=== PATIENT | female | born 1990 | race Caucasian/White ===

== ENCOUNTER 2025-02-22 15:33 | Outpatient (AMB) | payer BC, SELFPAY ==
[2025-02-22 16:11] VITALS: BP 130/89; PULSE 73; RESP 16; TEMP 36.5; O2SAT 98; BMI 38.2
--- NOTE | 2025-02-22 16:11 | AMB.OBINITIA ---
Vital Signs 02/22/25 16:11 Height 1.7 m Height Method Stated Weight 110.733 kg Weight Measurement Method Standing Scale BMI 38.2 BP 130/89 H Blood Pressure Source Automatic Cuff Blood Pressure Location Right Upper Arm Position Sitting Respiration 16 Pulse 73 Pulse Source Monitor Temp 97.7 F Temp Source Oral Pulse Oximetry (%) 98 Oxygen Delivery Method Room Air Allergies/Home Meds Allergies & Medications Allergies No Known Allergies Allergy (Verified 02/22/25 16:12) Medication Reconciliation No Known Home Medications 02/22/25 [History Confirmed 02/22/25] Intake Visit Data Collection New Patient or Established: New Patient (never been to [facility]) Reason for Visit:: INITIAL CARE Seen by Clinical Staff ONLY (RN/MA): No Front Desk Coordinator Required: No Do You Feel Safe at Home: Yes Authorities Contacted: N/A PCP or OBGYN visit in last 3 months: No Hx Now: Yes Are you currently on any form of Control: No Last menstrual period: 01/03/25 Pain Present Currently: No Pain Scale Used: Brown-Gardner/Numerical Pain scale:: 0 Smoking Status Smoking Status: Never smoker Questionnaires Covid-19 Vaccine Questionnaire Has patient been vacinated for Covid-19 Have you been vacinated for Covid-19: Yes PHQ-9 PHQ-2 Over the last 2 weeks, how often have you been bothered by any of the following problems? 1. Little interest or pleasure in doing things: not at all 2. Feeling down, depressed, or hopeless: not at all Total score: 0 PHQ-9 3. Trouble falling or staying asleep, or sleeping too much: Not at all 4. Feeling tired or having little energy: Not at all 5. Poor appetite or overeating: Not at all 6. Feeling bad about yourself - or that you are a failure or have let yourself or your family down: Not at all 7. Trouble concentrating on things, such as reading the newspaper or watching television: Not at all 8. Moving or speaking so slowly that other people could have noticed? - Or the opposite - being so fidgety or restless that you have been moving around a lot more than usual: not at all 9. Thoughts that you would be better off or of hurting yourself in some way: Not at all Total score: 0 Source: Developed by Drs. Bryan Alfredo, Yady Stauffer, Chester Villalba and colleagues, with an educational rodriguez from [employer]. Depression screen completed yes Social History Living Situation History Marital Status: Lives With: Family Housing: House Housing Other:: Has a 4 y/o daughter at home who has cystic fibrosis and is doing very well Tobacco History Smoking Status: Never smoker Second Hand Smoke Exposure: No Alcohol History Alcohol Intake: Never Domestic Abuse History Do You Feel Safe at Home: Yes History of Present Illness HPI Narrative The patient is a 34-year-old -1-0-1 past obstetrical history significant for vaginal delivery x 1 in about 2020 at 35 weeks. She was my patient in [place]. Her daughter weighed 4 pounds 7 ounces at . There were problems with baby passing meconium. They eventually diagnosed the baby with cystic fibrosis. She states that she is a carrier for the common cystic fibrosis gene and her is a carrier for one of the least common ones. They were told if they wanted to avoid having another baby with cystic fibrosis that they would have to undergo in vitro fertilization. They declined declined in vitro fertilization. They are aware of the risk of another child with cystic fibrosis of approximately 25% and they desire to keep this . They are okay with being co-managed with maternal- medicine in [place]. They do desire NIPT testing. The father the baby is present at bedside. 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 The patient states her daughter is doing quite well. She is on medications for her cystic fibrosis and this is controlling the disease quite well. OB Ultrasound Indication Indication: Size, dates, viability OB Ultrasound Ultrasound technique: transvaginal Gestational sac assessment: Presence, location, size, shape: There is a live intrauterine with a crown-rump length of 1.84 cm corresponding to 8 weeks and 2 days. 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 Hypertensive. OB Initial Visit Menstrual History Menstrual reliability: definite Flow: normal Menstrual regularity: regular Monthly: Yes Age at menarche: 10 On control pills at conception: No Associated symptoms (LMP): Reports amenorrhea, fatigue and breast tenderness OB History : 2 Para: 1 # of Living Children: 1 Delivery History 1st : Child's name: KETTY date: 04/11/21 sex: female Gestational age at delivery (weeks): 34 Delivery type: vaginal weight (lbs): 2012.816 g History of depression before or after : No Additional comments: Delivery between 34 and 35 weeks. Went into labor. Baby with cystic fibrosis. Infection History & Risk Evaluation History of STDs: none HIV risk evaluation: low risk Hepatitis B risk evaluation: low risk Patient or partner has history of Genital Herpes: No Varicella/chicken pox status: immunized Genetic Screening & History Genetic Screening/Teratology Counseling - Includes patient, baby's father, or anyone in either family with: 1. Patient's age 35 years or older as of estimated date of delivery: Yes 2. Thalassemia (Mongolian, Japanese, Mediterranean, or Background); MCV less than 80: No 3. Neural Tube Defect (Meningomyelocele, Spina Bifida, or Anencephaly): No 4. Congenital Heart Defect: No 5. Down Syndrome: No 6. Fercho-Sachs (Ashkenazi Adventist, Cajun, Vietnamese [place]): No 7. Tatyana Disease (Ashkenazi Adventist): No 8. Familial Dysautonomia (Ashkenazi Adventist): No 9. Sickle Cell Disease or Trait (): No 10. Hemophilia or other blood disorders: No 11. Muscular Dystrophy: No 12. Cystic Fibrosis: Yes (The patient and her are carriers for cystic fibrosis. ) 13. Kenefic's Chorea: No 14. Mental Retardation/Autism: No 15. Other inherited genetic or chromosomal disorder: No 16. Maternal Metabolic Disorder (EG,TYPE 1 Diabetes, PKU): No 17. Patient or baby's father had a child with defects not listed above: No 18. Recurrent loss or a stillbirth: No 19. Medications (including supplements, vitamins, herbs or otc drugs)/illicit/recreational drugs/alcohol since last menstrual period: No 20. Any other: No Comments/Counseling: Patient and her have been extensively counseled about cystic fibrosis and the fact they already have a daughter with cystic fibrosis and desire to proceed with . Infection History 1. Live with someone with TB or exposed to TB: No 2. Rash or viral illness since last menstrual period: No 3. Hepatitis B,C: No Other (see comments) Source: [employer] [place] [employer] Review of Systems Review of Systems Narrative Review of Systems: No bleeding or cramping. Tired. Breast tenderness. Constitutional Constitutional: Reports fatigue Genitourinary Genitourinary: Reports amenorrhea Endocrine Endocrine: Reports fatigue Exam General General Appearance: alert, in no apparent distress, comfortable, cooperative and healthy appearing Neck Neck exam: Present normal inspection, full ROM and trachea midline Chest Chest inspection: Present normal inspection and symmetric chest wall rise Resp Respiratory exam: Present normal lung sounds bilaterally Card Cardiovascular exam: Present regular rate, normal rhythm and normal heart sounds Abdominal Abdominal exam: Present soft and normal bowel sounds Psych Psychiatric exam: Present normal affect and normal mood Skin Skin exam: Present warm, dry, intact and normal color Office Procedures OB Clinic LOC & Office Proc's Nursing/Assessment Patient Status: Initial/New Patient OB Clinic Nursing Assessment: Medication Reconciliation, Update PMH in EMR and Vital Signs OB Clinic Coordination of Care: Complex Care and Chronic Disease 1-5, Consent,records obtained, informed consent, Education Simp Pt/Fam, Lab and Imaging orders, Results/Orders obtained and Staff clarify orders Special Needs: Heart tones Miscellaneous Interventions: Pelvic/Pap Smear Set up New Patient Charge New Patient Point Assignment: [id number] New Patient 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 Patient desires NIPT. Will call manage with maternal- medicine for history of cystic fibrosis. (2) Advanced maternal age (AMA) in : Status: Acute Assessment and Plan: Desires NIPT. For level 2 ultrasound with [facility]. (3) Cystic fibrosis carrier with affected child in prior , currently in first trimester: Status: Acute Assessment and Plan: Patient does not desire any special screening this will follow with maternal- medicine. Additional Plan Follow Up: 4 Weeks
== END 2025-02-22 17:10 | disposition home or self-care (01) ==
PROVIDERS: Supervising Provider Obstetrics & Gynecology; Visit Provider Obstetrics & Gynecology
DX: O09.521 Supervision of elderly multigravida, first trimester (principal); O09.291 Supervision of pregnancy with other poor reproductive or obstetric history, first trimester; Z14.1 Cystic fibrosis carrier; O09.891 Supervision of other high risk pregnancies, first trimester; O10.911 Unspecified pre-existing hypertension complicating pregnancy, first trimester; Z87.59 Personal history of other complications of pregnancy, childbirth and the puerperium; Z3A.08 8 weeks gestation of pregnancy
CPT/HCPCS: 99204; Q0091; G0463

== ENCOUNTER 2025-03-23 08:57 | Outpatient (AMB) | payer BC, SELFPAY ==
[2025-03-23 09:07] VITALS: BP 121/81; PULSE 75; RESP 17; TEMP 36.4; O2SAT 97; BMI 37.7
--- NOTE | 2025-03-23 09:07 | OBCLNT_ITS ---
Vital Signs 03/23/25 09:07 Height 1.7 m Height Method Stated Weight 109.089 kg Weight Measurement Method Standing Scale BMI 37.7 BP 121/81 Blood Pressure Source Automatic Cuff Blood Pressure Location Right Upper Arm Position Sitting Respiration 17 Pulse 75 Pulse Source Monitor Temp 97.6 F Temp Source Temporal Artery Scan Pulse Oximetry (%) 97 Oxygen Delivery Method Room Air Allergies/Home Meds Allergies & Medications Allergies No Known Allergies Allergy (Verified 03/23/25 09:08) Medication Reconciliation No Known Home Medications 02/22/25 [History Confirmed 03/23/25] Intake Visit Data Collection New Patient or Established: Established Patient (seen at [facility] within 3 years) Reason for Visit:: OBC Seen by Clinical Staff ONLY (RN/MA): No Emergency Veterinarian Required: No Do You Feel Safe at Home: Yes Authorities Contacted: N/A PCP or OBGYN visit in last 3 months: Yes Date of Last PCP or OBGYN visit: 02/22/25 Hx Now: Yes Are you currently on any form of Control: No Pain Present Currently: No Pain Scale Used: Brown-Gardner/Numerical Pain scale:: 0 Smoking Status Smoking Status: Never smoker Questionnaires Covid-19 Vaccine Questionnaire Has patient been vacinated for Covid-19 Have you been vacinated for Covid-19: No PHQ-9 PHQ-2 Over the last 2 weeks, how often have you been bothered by any of the following problems? 1. Little interest or pleasure in doing things: not at all 2. Feeling down, depressed, or hopeless: not at all Total score: 0 PHQ-9 3. Trouble falling or staying asleep, or sleeping too much: Not at all 4. Feeling tired or having little energy: Not at all 5. Poor appetite or overeating: Not at all 6. Feeling bad about yourself - or that you are a failure or have let yourself or your family down: Not at all 7. Trouble concentrating on things, such as reading the newspaper or watching television: Not at all 8. Moving or speaking so slowly that other people could have noticed? - Or the opposite - being so fidgety or restless that you have been moving around a lot more than usual: not at all 9. Thoughts that you would be better off or of hurting yourself in some way: Not at all Total score: 0 If you checked off any problems, how difficult have these problems made it for you to do your work, take care of things at home, or get along with other people?: not difficult at all Source: Developed by Drs. Bryan Alfredo, Yady Stauffer, Chester Villalba and colleagues, with an educational rodriguez from [employer] Depression screen completed yes Social History Living Situation History Marital Status: Lives With: Family Housing: House Housing Other:: Has a 4 y/o daughter at home who has cystic fibrosis and is doing very well Tobacco History Smoking Status: Never smoker Second Hand Smoke Exposure: No Alcohol History Alcohol Intake: Never Domestic Abuse History Do You Feel Safe at Home: Yes WARP DOFFER: Past Medical History Past Medical History: Yes Hx Hypertension History of Present Illness HPI Narrative Patient is a 34-year-old -0-0-1 presents for care. Care OB Visit Log OB Flowsheet Initial Weight: Not Recorded Date -?-?-?-?-?-?-?-?-?-?-?-?- EGA Weight BP Alb Glu CTX Pres Fundal ht FHR Mov Dilation Station Effacement Hx Notes Visit Note 03/23/25 -?-?-?-?-?-?-?-?-?-?-?-?- 12w 4d 109.089 kg 121/81 13 147 Good energy. No vaginal bleeding. No loss of fluids. Ultrasound today live IUP measuring 12 weeks 5 days crown-rump length is 6.29 cm SHANTANU Calculator Estimated Delivery Date Method Current WG Current Estimate 10/01/25 LMP (Certain) 12w 4d Other Estimates 10/02/25 Ultrasound #1 12w 3d Expected Delivery Route/Plan -0-0-1 status post vaginal delivery in the past Specific Issue/Plans Patient is a carrier for cystic fibrosis. Her is a carrier for cystic fibrosis. Their daughter at home is 4 years old and has cystic fibrosis. Patient is aware of a 25% chance of another child with cystic fibrosis. She would like to be followed at [facility] but declines amniocentesis or termination of if the baby has cystic fibrosis. Notes Visit Date: 03/23/25 Last Updated by: Apolonia Duarte (OB Clinic)MD Patient will get NIPT and labs done at [facility] now. She would like a referral to [facility] for a maternal- medicine consult and level 2 ultrasound. Office Procedures OB Clinic LOC & Office Proc's Nursing/Assessment Patient Status: Established Patient OB Clinic Nursing Assessment: Medication Reconciliation, Update PMH in EMR and Vital Signs OB Clinic Coordination of Care: Complex Care and Chronic Disease 1-5, Consent,records obtained, informed consent, Education Simp Pt/Fam and Staff clarify orders Special Needs: Heart tones Established Patient Charge Established Patient Point Assignment: 115 Established Patient Point Charge: EP Level 3 (80-115) Assessment & Plan Diagnosis / Problem List (1) Cystic fibrosis carrier with affected child in prior , currently in first trimester: Status: Acute Assessment and Plan: Desires level 2 ultrasound and MFM consult at [facility]. (2) Advanced maternal age (AMA) in : Status: Acute Assessment and Plan: Desires NIPT and level 2 ultrasound (3) : Status: Acute Qualifiers: Weeks of gestation: 12 weeks Qualified Code(s): Z3A.12 - 12 weeks gestation of
== END 2025-03-23 09:57 | disposition home or self-care (01) ==
LOC: HODSOBC 08:57
PROVIDERS: Supervising Provider Obstetrics & Gynecology; Visit Provider Obstetrics & Gynecology
DX: O09.521 Supervision of elderly multigravida, first trimester (principal); Z3A.12 12 weeks gestation of pregnancy; O09.891 Supervision of other high risk pregnancies, first trimester; Z14.1 Cystic fibrosis carrier; Z84.81 Family history of carrier of genetic disease
CPT/HCPCS: 99213; G0463

== ENCOUNTER 2025-04-28 09:02 | Outpatient (AMB) | payer BC, SELFPAY ==
[2025-04-28 09:24] VITALS: BP 125/80; PULSE 86; RESP 16; TEMP 36.8; O2SAT 98; BMI 29.5
--- NOTE | 2025-04-28 09:24 | OBCLNT_ITS ---
Vital Signs 04/28/25 09:24 Height 1.7 m Height Method Stated Weight 85.389 kg Weight Measurement Method Standing Scale BMI 29.5 BP 125/80 Blood Pressure Source Automatic Cuff Blood Pressure Location Left Upper Arm Position Sitting Respiration 16 Pulse 86 Pulse Source Monitor Temp 98.2 F Temp Source Oral Pulse Oximetry (%) 98 Oxygen Delivery Method Room Air Allergies/Home Meds Allergies & Medications Allergies No Known Allergies Allergy (Verified 04/28/25 09:26) Medication Reconciliation No Known Home Medications 02/22/25 [History Confirmed 04/28/25] Intake Visit Data Collection New Patient or Established: Established Patient (seen at [facility] within 3 years) Reason for Visit:: CARE Seen by Clinical Staff ONLY (RN/MA): No Ux Research Associate Required: No Do You Feel Safe at Home: Yes Authorities Contacted: N/A PCP or OBGYN visit in last 3 months: Yes Hx Now: Yes Are you currently on any form of Control: No Pain Present Currently: No Pain Scale Used: Brown-Gardner/Numerical Pain scale:: 0 Smoking Status Smoking Status: Never smoker Questionnaires Covid-19 Vaccine Questionnaire Has patient been vacinated for Covid-19 Have you been vacinated for Covid-19: Yes PHQ-9 PHQ-2 Over the last 2 weeks, how often have you been bothered by any of the following problems? 1. Little interest or pleasure in doing things: not at all 2. Feeling down, depressed, or hopeless: not at all Total score: 0 PHQ-9 3. Trouble falling or staying asleep, or sleeping too much: Not at all 4. Feeling tired or having little energy: Not at all 5. Poor appetite or overeating: Not at all 6. Feeling bad about yourself - or that you are a failure or have let yourself or your family down: Not at all 7. Trouble concentrating on things, such as reading the newspaper or watching television: Not at all 8. Moving or speaking so slowly that other people could have noticed? - Or the opposite - being so fidgety or restless that you have been moving around a lot more than usual: not at all 9. Thoughts that you would be better off or of hurting yourself in some way: Not at all Total score: 0 Source: Developed by Yady LaiW. Eh, Chester Villalba and colleagues, with an educational rodriguez from [employer]. 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 No vaginal bleeding. No loss of fluids. Ultrasound today live IUP measuring 12 weeks 5 days crown-rump length is 6.29 cm 04/28/25 -?-?-?-?-?-?-?-?-?-?-?-?- 17w 5d 85.389 kg 125/80 18 154 active + Flutter, N o VB or UCs No NIPT ordered. But desired SHANTANU Calculator Estimated Delivery Date Method Current WG Current Estimate 10/01/25 LMP (Certain) 17w 5d Other Estimates 10/02/25 Ultrasound #1 17w 4d Expected Delivery Route/Plan -0-0-1 status post vaginal delivery in the past Specific Issue/Plans Patient is a carrier for cystic fibrosis. Her is a carrier for cystic fibrosis. Their daughter at home is 4 years old and has cystic fibrosis. Patient is aware of a 25% chance of another child with cystic fibrosis. She would like to be followed at [facility] but declines amniocentesis or termination of if the baby has cystic fibrosis. Notes Visit Date: 04/28/25 Last Updated by: Apolonia Duarte (OB Clinic), PNC Labs on the chart: A+/Ab screen-/RNI/RPR NR/HepBSag-/HIV-/Hep C-/ GC-/Chlam-/SM-/CF carrier+ Has Level II US with [facility] Visit Date: 03/23/25 Last Updated by: Apolonia Duarte (OB Clinic)MD Patient will get NIPT and labs done at [facility] now. She would like a referral to [facility] for a maternal- medicine consult and level 2 ultrasound. Office Procedures OB Clinic LOC & Office Proc's Nursing/Assessment Patient Status: Established Patient OB Clinic Nursing Assessment: Medication Reconciliation, Update PMH in EMR and Vital Signs OB Clinic Coordination of Care: AMA, Complex Care and Chronic Disease 1-5, Consent,records obtained, informed consent, Education Simp Pt/Fam, 1 Ins Authorization, Lab and Imaging orders, Results/Orders obtained and Staff clarify orders Special Needs: Heart tones Established Patient Charge Established Patient Point Assignment: 170 Established Patient Point Charge: EP Level 5 (160-above) Assessment & Plan Diagnosis / Problem List (1) Cystic fibrosis carrier with affected child in prior , currently in first trimester: Status: Acute (2) Advanced maternal age (AMA) in : Status: Acute (3) : Status: Acute Qualifiers: Weeks of gestation: 17 weeks Qualified Code(s): Z3A.17 - 17 weeks gestation of
== END 2025-04-28 09:53 | disposition home or self-care (01) ==
LOC: HODSOBC 09:02
PROVIDERS: Supervising Provider Obstetrics & Gynecology; Visit Provider Obstetrics & Gynecology
DX: O09.522 Supervision of elderly multigravida, second trimester (principal); Z3A.17 17 weeks gestation of pregnancy; O09.892 Supervision of other high risk pregnancies, second trimester; Z14.1 Cystic fibrosis carrier; O10.912 Unspecified pre-existing hypertension complicating pregnancy, second trimester
CPT/HCPCS: 99215; G0463

== ENCOUNTER 2025-05-31 09:04 | Outpatient (AMB) | payer BC, SELFPAY ==
[2025-05-31 09:25] VITALS: BP 118/79; PULSE 71; RESP 16; TEMP 36.5; O2SAT 96; BMI 37.5
--- NOTE | 2025-05-31 09:25 | AMB.OBVISIT ---
Vital Signs 05/31/25 09:25 Height 1.7 m Height Method Stated Weight 108.579 kg Weight Measurement Method Standing Scale BMI 37.5 BP 118/79 Blood Pressure Source Automatic Cuff Blood Pressure Location Left Upper Arm Position Sitting Respiration 16 Pulse 71 Pulse Source Monitor Temp 97.7 F Temp Source Oral Pulse Oximetry (%) 96 Oxygen Delivery Method Room Air Allergies/Home Meds Allergies & Medications Allergies No Known Allergies Allergy (Verified 05/31/25 09:26) Medication Reconciliation No Known Home Medications 02/22/25 [History Confirmed 05/31/25] Intake Visit Data Collection New Patient or Established: Established Patient (seen at [facility] within 3 years) Reason for Visit:: CARE Seen by Clinical Staff ONLY (RN/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 1. Little interest or pleasure in doing things: not at all 2. Feeling down, depressed, or hopeless: not at all Total score: 0 PHQ-9 3. Trouble falling or staying asleep, or sleeping too much: Not at all 4. Feeling tired or having little energy: Not at all 5. Poor appetite or overeating: Not at all 6. Feeling bad about yourself - or that you are a failure or have let yourself or your family down: Not at all 7. Trouble concentrating on things, such as reading the newspaper or watching television: Not at all 8. Moving or speaking so slowly that other people could have noticed? - Or the opposite - being so fidgety or restless that you have been moving around a lot more than usual: not at all 9. Thoughts that you would be better off or of hurting yourself in some way: Not at all Total score: 0 Source: Developed by Drs. Bryan Alfredo, Yady Stauffer, Chester Villalba and colleagues, with an educational rodriguez from [employer]. 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 No vaginal bleeding. No loss of fluids. Ultrasound today live IUP measuring 12 weeks 5 days crown-rump length is 6.29 cm 04/28/25 <del>?</del> 17w 5d 85.389 kg 125/80 18 154 active + Flutter, No VB or UCs No NIPT ordered. 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 Her is a carrier for cystic fibrosis. Their daughter at home is 4 years old and has cystic fibrosis. Patient is aware of a 25% chance of another child with cystic fibrosis. She would like to be followed at [facility] but declines amniocentesis or termination of if the baby has cystic fibrosis. Notes Visit Date: 05/31/25 Last Updated by: Apolonia Duarte (OB Clinic)MD Had level 2 ultrasound at [facility] and normal. EDC 09/30/2025. Had a test called the Mi[employer] test which checks for genetic cystic fibrosis and the baby and it is negative. She states it would be less than 1% chance this baby has cystic fibrosis. [facility] recommended she double her dose of baby aspirin daily. They will follow-up for her cervical length and for growth. She will follow-up in 4 weeks. Visit Date: 04/28/25 Last Updated by: Apolonia Duarte (OB Clinic)MD PNC Labs on the chart: A+/Ab screen-/RNI/RPR NR/HepBSag-/HIV-/Hep C-/ GC-/Chlam-/SM-/CF carrier+ Has Level II US with [facility] Visit Date: 03/23/25 Last Updated by: Apolonia Duarte (OB Clinic)MD Patient will get NIPT and labs done at [facility] now. She would like a referral to [facility] for a maternal- medicine consult and level 2 ultrasound. Office Procedures OB Clinic LOC & Office Proc's Nursing/Assessment Patient Status: Established Patient OB Clinic Nursing Assessment: Medication Reconciliation, Update PMH in EMR and Vital Signs OB Clinic Coordination of Care: Complex Care and Chronic Disease 1-5, Consent,records obtained, informed consent, Education Simp Pt/Fam, Lab and Imaging orders, Results/Orders obtained and Staff clarify orders Special Needs: Heart tones Established Patient Charge Established Patient Point Assignment: 135 Established Patient Point Charge: EP Level 4 (120-155) Assessment & Plan Diagnosis / Problem List (1) Cystic fibrosis carrier with affected child in prior , currently in first trimester: Status: Acute Plan: This baby is negative for cystic fibrosis based on MiNOWireless genetic testing. (2) Advanced maternal age (AMA) in : Status: Acute Plan: Normal level 2 ultrasound normal NIPT on baby aspirin daily (3) : Status: Acute Qualifiers: Weeks of gestation: 22 weeks Qualified Code(s): Z3A.22 - 22 weeks gestation of
== END 2025-05-31 09:46 | disposition home or self-care (01) ==
LOC: HODSOBC 09:04
PROVIDERS: Supervising Provider Obstetrics & Gynecology; Visit Provider Obstetrics & Gynecology
DX: O09.522 Supervision of elderly multigravida, second trimester (principal); O09.892 Supervision of other high risk pregnancies, second trimester; Z14.1 Cystic fibrosis carrier; Z3A.22 22 weeks gestation of pregnancy; Z84.81 Family history of carrier of genetic disease
CPT/HCPCS: 99214; G0463

== ENCOUNTER 2025-06-30 09:29 | Outpatient (AMB) | payer BC, SELFPAY ==
[2025-06-30 09:47] VITALS: BP 135/85; PULSE 70; RESP 17; TEMP 36.4; O2SAT 98; BMI 38.0
--- NOTE | 2025-06-30 09:47 | AMB.OBVISIT ---
Vital Signs 06/30/25 09:47 Height 1.7 m Height Method Stated Weight 109.996 kg Weight Measurement Method Standing Scale BMI 38.0 BP 135/85 H Blood Pressure Source Automatic Cuff Blood Pressure Location Left Upper Arm Position Sitting Respiration 17 Pulse 70 Pulse Source Monitor Temp 97.5 F Temp Source Temporal Artery Scan Pulse Oximetry (%) 98 Allergies/Home Meds Allergies & Medications Allergies No Known Allergies Allergy (Verified 06/30/25 09:50) Medication Reconciliation aspirin 81 mg tablet 81 mg PO BID 06/30/25 [History Confirmed 06/30/25] desvenlafaxine 100 mg tablet,extended release 24 hr 100 mg PO QDAY 06/30/25 [History Confirmed 06/30/25] vits no.126-ferrous fum 28 mg iron-folic acid 800 mcg tablet (Classic ) tab PO 06/30/25 [History Confirmed 06/30/25] Intake Visit Data Collection New Patient or Established: Established Patient (seen at [facility] within 3 years) Reason for Visit:: OBC Seen by Clinical Staff ONLY (RN/MA): No Research Chef Required: No Do You Feel Safe at Home: Yes Authorities Contacted: N/A PCP or OBGYN visit in last 3 months: Yes Hx Now: Yes Are you currently on any form of Control: No Pain Present Currently: No Pain Scale Used: Brown-Gardner/Numerical Pain scale:: 0 Smoking Status Smoking Status: Never smoker Questionnaires Covid-19 Vaccine Questionnaire Has patient been vacinated for Covid-19 Have you been vacinated for Covid-19: Yes PHQ-9 PHQ-2 Over the last 2 weeks, how often have you been bothered by any of the following problems? 1. Little interest or pleasure in doing things: not at all 2. Feeling down, depressed, or hopeless: not at all Total score: 0 PHQ-9 3. Trouble falling or staying asleep, or sleeping too much: Not at all 4. Feeling tired or having little energy: Not at all 5. Poor appetite or overeating: Not at all 6. Feeling bad about yourself - or that you are a failure or have let yourself or your family down: Not at all 7. Trouble concentrating on things, such as reading the newspaper or watching television: Not at all 8. Moving or speaking so slowly that other people could have noticed? - Or the opposite - being so fidgety or restless that you have been moving around a lot more than usual: not at all 9. Thoughts that you would be better off or of hurting yourself in some way: Not at all Total score: 0 If you checked off any problems, how difficult have these problems made it for you to do your work, take care of things at home, or get along with other people?: not difficult at all Source: Developed by Drs. Bryan Alfredo, Yady Stauffer, Chester Villalba and colleagues, with an educational rodriguez from [employer]. 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 No vaginal bleeding. No loss of fluids. Ultrasound today live IUP measuring 12 weeks 5 days crown-rump length is 6.29 cm 04/28/25 <del>?</del> 17w 5d 85.389 kg 125/80 18 154 active + Flutter, No VB or UCs No NIPT ordered. 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 Her is a carrier for cystic fibrosis. Their daughter at home is 4 years old and has cystic fibrosis. Patient is aware of a 25% chance of another child with cystic fibrosis. She would like to be followed at [facility] but declines amniocentesis or termination of if the baby has cystic fibrosis. Notes Visit Date: 05/31/25 Last Updated by: Apolonia Duarte (OB Clinic)MD Had level 2 ultrasound at [facility] and normal. EDC 09/30/2025. Had a test called the [employer] test which checks for genetic cystic fibrosis and the baby and it is negative. She states it would be less than 1% chance this baby has cystic fibrosis. [facility] recommended she double her dose of baby aspirin daily. They will follow-up for her cervical length and for growth. She will follow-up in 4 weeks. Visit Date: 04/28/25 Last Updated by: Apolonia Duarte (OB Clinic)MD [facility] Labs on the chart: A+/Ab screen-/RNI/RPR NR/HepBSag-/HIV-/Hep C-/ GC-/Chlam-/SM-/CF carrier+ Has Level II US with [facility] Visit Date: 03/23/25 Last Updated by: Apolonia Duarte (OB Clinic)MD Patient will get NIPT and labs done at [facility] now. She would like a referral to [facility] for a maternal- medicine consult and level 2 ultrasound. Office Procedures OBC Clinic LOC & Office Proc's Nursing/Assessment Patient Status: Established Patient OB Clinic Nursing Assessment: Medication Reconciliation, Update PMH in EMR and Vital Signs OB Clinic Coordination of Care: Complex Care and Chronic Disease 1-5, Education Complex Pt/Fam, Consent,records obtained, informed consent, Lab and Imaging orders, Results/Orders obtained and Staff clarify orders Special Needs: Heart tones Established Patient Charge Established Patient Point Assignment: 140 Established Patient Point Charge: EP Level 4 (120-155)
== END 2025-06-30 10:17 | disposition home or self-care (01) ==
PROVIDERS: Supervising Provider Advanced Practice Midwife; Visit Provider Obstetrics & Gynecology
DX: O09.522 Supervision of elderly multigravida, second trimester (principal); O09.892 Supervision of other high risk pregnancies, second trimester; Z14.1 Cystic fibrosis carrier; Z3A.26 26 weeks gestation of pregnancy
CPT/HCPCS: 99214; G0463

== ENCOUNTER 2025-08-13 14:54 | Outpatient (AMB) | payer BC, SELFPAY ==
--- NOTE | 2025-08-13 15:05 | OBCLNT_ITS ---
Vital Signs 08/13/25 15:09 Height 1.7 m Height Method Stated Weight 112.037 kg Weight Measurement Method Standing Scale BMI 38.7 BP 142/88 H Blood Pressure Source Automatic Cuff Blood Pressure Location Left Upper Arm Position Sitting Respiration 18 Pulse 77 Pulse Source Monitor Temp 97.2 F Temp Source Oral Pulse Oximetry (%) 98 Oxygen Delivery Method Room Air Allergies/Home Meds Allergies & Medications Allergies No Known Allergies Allergy (Verified 08/13/25 15:11) Medication Reconciliation aspirin 81 mg tablet 81 mg PO BID 06/30/25 [History Confirmed 08/13/25] desvenlafaxine 100 mg tablet,extended release 24 hr 100 mg PO QDAY 06/30/25 [History Confirmed 08/13/25] vits no.126-ferrous fum 28 mg iron-folic acid 800 mcg tablet (Classic ) tab PO 06/30/25 [History Confirmed 08/13/25] Immunizations Immunizations Flu Vaccine in the Last 12 Months: No Flu Vaccine Exclusion Criteria: No Exclusion Criteria Care OB Visit Log OB Flowsheet Initial Weight: Not Recorded Date -?-?-?-?-?-?-?-?-?-?-?-?- EGA Weight BP Alb Glu CTX Pres Fundal ht FHR Mov Dilation Station Effacement Hx Notes Visit Note 03/23/25 -?-?-?-?-?-?-?-?-?-?-?-?- 12w 4d 109.089 kg 121/81 13 147 Good energy. No vaginal bleeding. No loss of fluids. Ultrasound today live IUP measuring 12 weeks 5 days crown-rump length is 6.29 cm 04/28/25 -?-?-?-?-?-?-?-?-?-?-?-?- 17w 5d 85.389 kg 125/80 18 154 active + Flutter, N o VB or UCs No NIPT ordered. But desired 05/31/25 -?-?-?-?-?-?-?-?-?-?-?-?- 22w 3d 108.579 kg 118/79 22 147 active +FM No UCs or LOF NIPT 46 XX Had [place] Genetic test at [facility] and the risk of another CF baby is only 1% 06/30/25 -?-?-?-?-?-?-?-?-?-?-?-?- 26w 5d 109.996 kg 135/85 26 145 active +FM No UCs No VB 08/13/25 -?-?-?-?-?-?-?-?-?-?-?-?- 33w 0d 112.037 kg 142/88 absent unknown 33 145 active Patient states she has a lot of stress especially at work and at home with her low 1. And she denies PIH signs or symptoms. Denies leaking, bleeding, cramps. She does have some suprapubic pressure. Reports good movement First blood pressure was 167/76. Repeat 1 . Discussed labor precautions. Kick count twice a day. Patient is sent to labor and delivery for PIH workup and labor monitoring. 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 Her is a carrier for cystic fibrosis. Their daughter at home is 4 years old and has cystic fibrosis. Patient is aware of a 25% chance of another child with cystic fibrosis. She would like to be followed at [facility] but declines amniocentesis or termination of if the baby has cystic fibrosis. Notes Visit Date: 08/13/25 Last Updated by: Lindsey Borja CNM 08/12: 3rd tri lab wnl Visit Date: 06/30/25 Last Updated by: Apolonia Duarte (OB Clinic)MD Pt is doing well. Has follow up scheduled with [facility] GCT ordered Will authorize for NSTs/BPPs Visit Date: 05/31/25 Last Updated by: Apolonia Duarte (OB Clinic)MD Had level 2 ultrasound at [facility] and normal. EDC 09/30/2025. Had a test called the [employer] test which checks for genetic cystic fibrosis and the baby and it is negative. She states it would be less than 1% chance this baby has cystic fibrosis. [facility] recommended she double her dose of baby aspirin daily. They will follow-up for her cervical length and for growth. She will follow-up in 4 weeks. Visit Date: 04/28/25 Last Updated by: Apolonia Duarte (OB Clinic)MD [facility] Labs on the chart: A+/Ab screen-/RNI/RPR NR/HepBSag-/HIV-/Hep C-/ GC-/Chlam-/SM-/CF carrier+ Has Level II US with [facility] Visit Date: 03/23/25 Last Updated by: Apolonia Duarte (OB Clinic)MD Patient will get NIPT and labs done at [facility] now. She would like a referral to [facility] for a maternal- medicine consult and level 2 ultrasound. Office Procedures OBC Clinic LOC & Office Proc's Nursing/Assessment Patient Status: Established Patient OB Clinic Nursing Assessment: Medication Reconciliation, Update PMH in EMR and Vital Signs OB Clinic Coordination of Care: Consent,records obtained, informed consent, Education Simp Pt/Fam, Lab and Imaging orders, Results/Orders obtained and Staff clarify orders Special Needs: Heart tones Established Patient Charge Established Patient Point Assignment: 110 Established Patient Point Charge: EP Level 3 (80-115) Assessment & Plan Diagnosis / Problem List (1) Advanced maternal age (AMA) in : Status: Acute (2) Encounter for supervision of high risk in third trimester, antepartum: Status: Acute Plan Patient to labor and delivery for PIH workup. Patient has a follow-up with [facility] August 26. Discussed labor precautions and kick count twice a day. Increase fluids and rest. Additional Plan Follow Up: 2 Weeks (obc)
[2025-08-13 15:09] VITALS: BP 142/88; PULSE 77; RESP 18; TEMP 36.2; O2SAT 98; BMI 38.7
== END 2025-08-13 16:10 | disposition home or self-care (01) ==
LOC: HODSOBC 14:54
PROVIDERS: Supervising Provider Advanced Practice Midwife; Visit Provider Advanced Practice Midwife
DX: O09.523 Supervision of elderly multigravida, third trimester (principal); O09.893 Supervision of other high risk pregnancies, third trimester; Z14.1 Cystic fibrosis carrier; Z3A.33 33 weeks gestation of pregnancy; Z56.6 Other physical and mental strain related to work; Z63.8 Other specified problems related to primary support group
CPT/HCPCS: 99213; G0463

== ENCOUNTER 2025-08-13 16:56 | Outpatient (CLI) | payer BC, SELFPAY ==
[2025-08-13] VITALS (22 sets, daily range): BP systolic 129–155; BP diastolic 72–91; PULSE 68–91; RESP 18–100; TEMP 37; O2SAT 97–100; BMI 38.8
--- NOTE | 2025-08-13 17:23 | XR_ITS ---
Examination: Complete OB ultrasound greater than 14 weeks Date and time of exam: August 13, 2025, 1755 hours INDICATIONS: High blood pressure on doctor's visit today Findings: Viable intrauterine single fetus with single amniotic sac presentation cephalic spine anterior Cardiac motion 136 bpm Placenta anterior grade 1 Amniotic fluid index 16.4 cm Cervix 3.2 cm Ovaries obscured by bowel gas. Composite estimated gestational age based on BPD, head circumference, abdominal circumference, femur length is 32 weeks 2 days Estimated weight 1794 g. Survey of intracranial anatomy, spinal anatomy, abdominal anatomy, four-chamber heart performed with no abnormalities identified. Impression: Viable intrauterine gestation cephalic presentation.
[2025-08-13 17:34] LABS: Collection Type, Urine Clean Catch
[2025-08-13 17:38] LABS: Basophils # (Auto) 0.1 Thou/mm3 (0.0-0.2); Basophils % (Auto) 1 % (0-2.5); Eosinophils # (Auto) 0.1 Thou/mm3 (0.0-0.5); Eosinophils % (Auto) 1 % (0-10); Hematocrit 34.6 % (36.0-46.0); Hemoglobin 11.7 g/dL (12.0-16.0); Immature Granulocytes Auto 0.04 Thou/mm3 (0.00-0.00); Lymphocytes # (Auto) 2.1 Thou/mm3 (1.0-4.8); Lymphocytes % (Auto) 24 % (10-50); Mean Corpuscular HGB Conc 33.8 g/dl (31.0-37.0); Mean Corpuscular Hemoglobin 29.5 pg (25.0-35.0); Mean Corpuscular Volume 87 fL (80-100); Monocytes # (Auto) 0.5 Thou/mm3 (0.0-0.8); Monocytes % (Auto) 5 % (0-12); Neutrophils # (Auto) 5.8 Thou/mm3 (1.8-7.7); Neutrophils % (Auto) 68 % (37-80); Nucleated Red Blood Cell # 0.00 Thou/mm3 (0.00-0.00); Nucleated Red Blood Cell % 0 /100 WBC (0); Platelet Count 334 Thou/mm3 (140-440); RDW Standard Deviation 41.0 fL (36.4-46.3); Red Blood Count 3.97 Miln/mm3 (4.00-5.20); White Blood Count 8.5 Thou/mm3 (3.6-11.0)
[2025-08-13 17:44] LABS: Bacteria,Urine 2+; Bilirubin,Urine Negative (Negative); Blood,Urine Negative (Negative); Clarity,Urine Clear (Clear/Hazy); Color,Urine Colorless (Lt Yel-Yel); Glucose, Urine Negative (Negative); Ketones,Urine Negative (Negative); Leukocyte Esterase,Urine Negative (Negative); Nitrite,Urine Negative (Negative); PH,Urine 6.5 (5.0-7.0); Protein,Urine Negative (Neg - Trace); RBC,Urine < 1 /hpf (0-3); Specific Gravity,Urine 1.004 (1.001-1.035); Squamous Epithelial Cell,Urine 1 /hpf (0-5); Urobilinogen,Urine Negative mg/dL (0.0-1.0); WBC,Urine 2 /hpf (0-5)
[2025-08-13 17:53] LABS: Creatinine,Random Urine 24 mg/dL (30-125); Protein Total, Random Urine < 6 mg/dL (1-14)
[2025-08-13 18:02] LABS: Alanine Aminotransferase 11 U/L (10-49); Albumin, Serum 4.0 gm/dL (3.5-5.0); Albumin/Globulin Ratio 1.9 (1.2-2.2); Alkaline Phosphatase 94 U/L (46-116); Anion Gap 9 (7-16); Aspartate Amino Transferase 19 U/L (0-34); BUN/Creatinine Ratio 8 Ratio (12-20); Bilirubin,Total 0.2 mg/dL (0.3-1.2); Blood Urea Nitrogen < 5 mg/dL (9-23); Calcium 8.7 mg/dL (8.3-10.6); Calcium (Corrected) 8.7 mg/dL (8.5-10.1); Carbon Dioxide 23.6 mMol/L (20.0-31.0); Chloride 104 mMol/L (98-107); Creatinine (Component) 0.6 mg/dL (0.6-1.3); Estimated Creatinine Clearance 167.7 mL/min (>60); Globulin 2.1 gm/dL (2.3-3.5); Glucose 120 mg/dL (74-106); LDH (Lactate Dehydrogenase) 160 U/L (120-246); Osmolality,Calculated 272 (275-295); Potassium 3.5 mMol/L (3.4-5.1); Sodium 137 mMol/L (136-145); Total Protein 6.1 gm/dL (5.7-8.2); Uric Acid 4.7 mg/dL (3.1-7.8); eGFR > 60 See Note
[2025-08-13 18:14] LABS: Fibrinogen 600 mg/dL (175-375); INR 0.9 (0.9-1.3); Partial Thromboplastin Time 27.6 Seconds (22.0-36.0); Prothrombin Time 9.9 Seconds (9.0-12.2)
--- NOTE | 2025-08-13 19:44 | PRELIM_ITS ---
Obstetric ultrasound (transabdominal) axial. August 13, 2025 1755 hours Clinical history: Elevated blood pressure. Comparison: No prior study is available for comparison. Findings: There is a gravid uterus with a live fetus in cephalic presentation of mean gestational age 32 weeks and 2 days (by biometry). cardiac activity is present at a heart rate of 136 beats per minute. four chamber heart, stomach, urinary bladder, kidneys and spine are seen. The placenta is anterior in location, maturity grade 2. There is no evidence of placenta previa or retroplacental hemorrhage. Amniotic fluid is adequate (AMI = 16.4 cm). Estimated weight is 1794 grams+/- 266 grams. Estimated due date by ultrasound is 10/06/2025. The cervix measures 3.2 cm. The internal os is closed. The ovaries are not visualized, obscured by bowel gas. Impression: Gravid uterus with a single live fetus in cephalic presentation of mean gestational age 32 weeks and 2 days. Report Electronically Signed By: Homer Stahl 08/13/2025 7:43:07 PM [EST]
== END 2025-08-13 19:02 | disposition home or self-care (01) ==
LOC: S4S1 16:57 → S4SX 16:58
PROVIDERS: PCP Nurse Practitioner Family; Referring Provider Obstetrics & Gynecology; Visit Provider Obstetrics & Gynecology
DX: Z34.83 Encounter for supervision of other normal pregnancy, third trimester (principal); Z36.89 Encounter for other specified antenatal screening; Z3A.33 33 weeks gestation of pregnancy
CPT/HCPCS: 36415; 59025; 76805; 80053; 81001; 82570; 83615; 84156; 84550; 85025; 85384; 85610; 85730

== ENCOUNTER 2025-08-25 15:21 | Outpatient (AMB) | payer BC, SELFPAY ==
[2025-08-25 15:45] VITALS: BP 130/82; PULSE 64; RESP 18; TEMP 36.2; O2SAT 98
--- NOTE | 2025-08-25 15:45 | OBCLNT_ITS ---
Vital Signs 08/25/25 15:45 BP 130/82 Blood Pressure Source Automatic Cuff Blood Pressure Location Left Upper Arm Position Sitting Respiration 18 Pulse 64 Pulse Source Monitor Temp 97.2 F Temp Source Oral Pulse Oximetry (%) 98 Oxygen Delivery Method Room Air Allergies/Home Meds Allergies & Medications Allergies No Known Allergies Allergy (Verified 08/25/25 15:46) Medication Reconciliation aspirin 81 mg tablet 81 mg PO BID 06/30/25 [History Confirmed 08/25/25] desvenlafaxine 100 mg tablet,extended release 24 hr 100 mg PO QDAY 06/30/25 [History Confirmed 08/25/25] vits no.126-ferrous fum 28 mg iron-folic acid 800 mcg tablet (Classic ) tab PO 06/30/25 [History Confirmed 08/25/25] Immunizations Immunizations Flu Vaccine in the Last 12 Months: No Flu Vaccine Exclusion Criteria: No Exclusion Criteria Care OB Visit Log OB Flowsheet Initial Weight: Not Recorded Date -?-?-?-?-?-?-?-?-?-?-?-?- EGA Weight BP Alb Glu CTX Pres Fundal ht FHR Mov Dilation Station Effacement Hx Notes Visit Note 03/23/25 -?-?-?-?-?-?-?-?-?-?-?-?- 12w 4d 109.089 kg 121/81 13 147 Good energy. No vaginal bleeding. No loss of fluids. Ultrasound today live IUP measuring 12 weeks 5 days crown-rump length is 6.29 cm 04/28/25 -?-?-?-?-?-?-?-?-?-?-?-?- 17w 5d 85.389 kg 125/80 18 154 active + Flutter, N o VB or UCs No NIPT ordered. But desired 05/31/25 -?-?-?-?-?-?-?-?-?-?-?-?- 22w 3d 108.579 kg 118/79 22 147 active +FM No UCs or LOF NIPT 46 XX Had [place] Genetic test at [facility] and the risk of another CF baby is only 1% 06/30/25 -?-?-?-?-?-?-?-?-?-?-?-?- 26w 5d 109.996 kg 135/85 26 145 active +FM No UCs No VB 08/13/25 -?-?-?-?-?-?-?-?-?-?-?-?- 33w 0d 112.037 kg 142/88 absent unknown 33 145 active Patient states she has a lot of stress especially at work and at home with her low 1. And she denies PIH signs or symptoms. Denies leaking, bleeding, cramps. She does have some suprapubic pressure. Reports good movement First blood pressure was 167/76. Repeat 1 . Discussed labor precautions. Kick count twice a day. Patient is sent to labor and delivery for PIH workup and labor monitoring. Keep appointment with [facility] August 26 08/25/25 -?-?-?-?-?-?-?-?-?-?-?-?- 34w 5d 130/82 absent breech 34 146 active Reports good movement. Denies contractions. No complaints of headache, blurred vision, epigastric pain. Patient checks her blood pressures at home she reports that and they are all under 130/80. Patient is compliant with weekly NST BPP. Denies leaking or bleeding. [facility] appointment August 26 Continue weekly NST BPP. Kick count twice a day. Discussed breech exercises. Continue to monitor for signs and symptoms of preeclampsia. And continue to monitor blood pressure. To the hospital for blood pressures 140/90. 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 Her is a carrier for cystic fibrosis. Their daughter at home is 4 years old and has cystic fibrosis. Patient is aware of a 25% chance of another child with cystic fibrosis. She would like to be followed at [facility] but declines amniocentesis or termination of if the baby has cystic fibrosis. Notes Visit Date: 08/13/25 Last Updated by: Lindsey Borja CNM 08/12: 3rd tri lab wnl Visit Date: 06/30/25 Last Updated by: Apolonia Duarte (OB Clinic)MD Pt is doing well. Has follow up scheduled with [facility] GCT ordered Will authorize for NSTs/BPPs Visit Date: 05/31/25 Last Updated by: Apolonia Duarte (OB Clinic)MD Had level [address] [facility] and normal. EDC 09/30/2025. Had a test called the [employer] test which checks for genetic cystic fibrosis and the baby and it is negative. She states it would be less than 1% chance this baby has cystic fibrosis. [facility] recommended she double her dose of baby aspirin daily. They will follow-up for her cervical length and for growth. She will follow-up in 4 weeks. Visit Date: 04/28/25 Last Updated by: Apolonia Duarte (OB Clinic)MD PNC Labs on the chart: A+/Ab screen-/RNI/RPR NR/HepBSag-/HIV-/Hep C-/ GC-/Chlam-/SM-/CF carrier+ Has Level II US with [facility] Visit Date: 03/23/25 Last Updated by: Apolonia Duarte (OB Clinic)MD Patient will get NIPT and labs done at [facility] now. She would like a referral to [facility] for a maternal- medicine consult and level 2 ultrasound. Office Procedures OBC Clinic LOC & Office Proc's Nursing/Assessment Patient Status: Established Patient OB Clinic Nursing Assessment: Medication Reconciliation, Update PMH in EMR and Vital Signs OB Clinic Coordination of Care: Consent,records obtained, informed consent, Education Simp Pt/Fam, Lab and Imaging orders, Results/Orders obtained and Staff clarify orders Special Needs: Heart tones Established Patient Charge Established Patient Point Assignment: 110 Established Patient Point Charge: EP Level 3 (80-115) Assessment & Plan Diagnosis / Problem List (1) Gestational hypertension: Status: Acute Qualifiers: Trimester: third trimester Qualified Code(s): O13.3 - Gestational [-induced] hypertension without significant proteinuria, third trimester (2) Encounter for supervision of high risk in third trimester, antepartum: Status: Acute (3) Advanced maternal age (AMA) in : Status: Acute Plan labor precautions. Kick count twice a day. Continue to monitor for signs and symptoms of high blood pressure. Continue to monitor blood pressures at home. To the hospital with blood pressures 140/90 and ER precautions. Continue weekly NST BPP induction at 38 weeks. Return in a week OB check Additional Plan Follow Up: 1 Week (obc)
== END 2025-08-25 16:05 | disposition home or self-care (01) ==
LOC: HODSOBC 15:21
PROVIDERS: Supervising Provider Advanced Practice Midwife; Visit Provider Advanced Practice Midwife
DX: O09.523 Supervision of elderly multigravida, third trimester (principal); O09.893 Supervision of other high risk pregnancies, third trimester; O13.3 Gestational [pregnancy-induced] hypertension without significant proteinuria, third trimester; Z3A.34 34 weeks gestation of pregnancy; Z14.1 Cystic fibrosis carrier
CPT/HCPCS: 99213; G0463

== ENCOUNTER 2025-09-08 10:13 | Outpatient (AMB) | payer BC, SELFPAY ==
--- NOTE | 2025-09-08 10:20 | OBCLNT_ITS ---
Vital Signs 09/08/25 10:39 Weight 113.398 kg Weight Measurement Method Standing Scale BP 126/80 Blood Pressure Source Automatic Cuff Blood Pressure Location Left Upper Arm Position Sitting Respiration 18 Pulse 74 Pulse Source Monitor Temp 97.2 F Temp Source Oral Pulse Oximetry (%) 98 Oxygen Delivery Method Room Air Allergies/Home Meds Allergies & Medications Allergies No Known Allergies Allergy (Verified 09/08/25 10:39) Medication Reconciliation aspirin 81 mg tablet 81 mg PO BID 06/30/25 [History Confirmed 09/08/25] desvenlafaxine 100 mg tablet,extended release 24 hr 100 mg PO QDAY 06/30/25 [History Confirmed 09/08/25] vits no.126-ferrous fum 28 mg iron-folic acid 800 mcg tablet (Classic ) tab PO 06/30/25 [History Confirmed 09/08/25] Immunizations Immunizations Flu Vaccine in the Last 12 Months: No Flu Vaccine Exclusion Criteria: No Exclusion Criteria Care OB Visit Log OB Flowsheet Initial Weight: Not Recorded Date -?-?-?-?-?-?-?-?-?-?-?-?- EGA Weight BP Alb Glu CTX Pres Fundal ht FHR Mov Dilation Station Effacement Hx Notes Visit Note 03/23/25 -?-?-?-?-?-?-?-?-?-?-?-?- 12w 4d 109.089 kg 121/81 13 147 Good energy. No vaginal bleeding. No loss of fluids. Ultrasound today live IUP measuring 12 weeks 5 days crown-rump length is 6.29 cm 04/28/25 -?-?-?-?-?-?-?-?-?-?-?-?- 17w 5d 85.389 kg 125/80 18 154 active + Flutter, N o VB or UCs No NIPT ordered. But desired 05/31/25 -?-?-?-?-?-?-?-?-?-?-?-?- 22w 3d 108.579 kg 118/79 22 147 active +FM No UCs or LOF NIPT 46 XX Had [place] Genetic test at [facility] and the risk of another CF baby is only 1% 06/30/25 -?-?-?-?-?-?-?-?-?-?-?-?- 26w 5d 109.996 kg 135/85 26 145 active +FM No UCs No VB 08/13/25 -?-?-?-?-?-?-?-?-?-?-?-?- 33w 0d 112.037 kg 142/88 absent unknown 33 145 active Patient states she has a lot of stress especially at work and at home with her low 1. And she denies PIH signs or symptoms. Denies leaking, bleeding, cramps. She does have some suprapubic pressure. Reports good movement First blood pressure was 167/76. Repeat 1 . Discussed labor precautions. Kick count twice a day. Patient is sent to labor and delivery for PIH workup and labor monitoring. Keep appointment with [facility] August 26 08/25/25 -?-?-?-?-?-?-?-?-?-?-?-?- 34w 5d 130/82 absent breech 34 146 active Reports good movement. Denies contractions. No complaints of headache, blurred vision, epigastric pain. Patient checks her blood pressures at home she reports that and they are all under 130/80. Patient is compliant with weekly NST BPP. Denies leaking or bleeding. [facility] appointment August 26 Continue weekly NST BPP. Kick count twice a day. Discussed breech exercises. Continue to monitor for signs and symptoms of preeclampsia. And continue to monitor blood pressure. To the hospital for blood pressures 140/90. Return in a week OB 09/08/25 -?-?-?-?-?-?-?-?-?-?-?-?- 36w 5d 113.398 kg 126/80 absent cephalic 36 14 5 active Denies PIH signs and symptoms. Reports good movement. Denies leaking, bleeding, contractions. Patient is compliant with weekly NST BPP . GBS today. Kick count twice a day. Discussed labor precautions. 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 Her is a carrier for cystic fibrosis. Their daughter at home is 4 years old and has cystic fibrosis. Patient is aware of a 25% chance of another child with cystic fibrosis. She would like to be followed at [facility] but declines amniocentesis or termination of if the baby has cystic fibrosis. Notes Visit Date: 08/13/25 Last Updated by: Lindsey Borja CNM 08/12: 3rd tri lab wnl Visit Date: 06/30/25 Last Updated by: Apolonia Duarte (OB Clinic)MD Pt is doing well. Has follow up scheduled with [facility] GCT ordered Will authorize for NSTs/BPPs Visit Date: 05/31/25 Last Updated by: Apolonia Duarte (OB Clinic)MD Had level 2 ultrasound at [facility] and normal. EDC 09/30/2025. Had a test called the [employer] test which checks for genetic cystic fibrosis and the baby and it is negative. She states it would be less than 1% chance this baby has cystic fibrosis. [facility] recommended she double her dose of baby aspirin daily. They will follow-up for her cervical length and for growth. She will follow-up in 4 weeks. Visit Date: 04/28/25 Last Updated by: Apolonia Durate (OB Clinic)MD PNC Labs on the chart: A+/Ab screen-/RNI/RPR NR/HepBSag-/HIV-/Hep C-/ GC-/Chlam-/SM-/CF carrier+ Has Level II US with [facility] Visit Date: 03/23/25 Last Updated by: Apolonia Duarte (OB Clinic)MD Patient [facility]. She would like a referral to [facility] for a maternal- medicine consult and level 2 ultrasound. Office Procedures OBC Clinic LOC & Office Proc's Nursing/Assessment Patient Status: Established Patient OB Clinic Nursing Assessment: Medication Reconciliation, Update PMH in EMR and Vital Signs OB Clinic Coordination of Care: Consent,records obtained, informed consent, Education Simp Pt/Fam, Lab and Imaging orders, Results/Orders obtained and Staff clarify orders Special Needs: Heart tones Established Patient Charge Established Patient Point Assignment: 110 Established Patient Point Charge: EP Level 3 (80-115) Assessment & Plan Diagnosis / Problem List (1) Gestational hypertension: Status: Acute Qualifiers: Trimester: third trimester Qualified Code(s): O13.3 - Gestational [-induced] hypertension without significant proteinuria, third trimester (2) Encounter for supervision of high risk in third trimester, antepartum: Status: Acute Plan Schedule induction of labor for September 27, 2025. Continue weekly NST BPP. Continue to monitor blood pressures twice a day. Discussed ER precautions and danger signs and symptoms. Discussed labor precautions. Kick count twice a day. And we did GBS today return in a week OB check Additional Plan Follow Up: 1 Week (obc)
[2025-09-08 10:39] VITALS: BP 126/80; PULSE 74; RESP 18; TEMP 36.2; O2SAT 98
== END 2025-09-08 10:57 | disposition home or self-care (01) ==
LOC: HODSOBC 10:13
PROVIDERS: Supervising Provider Advanced Practice Midwife; Visit Provider Advanced Practice Midwife
DX: O09.893 Supervision of other high risk pregnancies, third trimester (principal); O13.3 Gestational [pregnancy-induced] hypertension without significant proteinuria, third trimester; O09.523 Supervision of elderly multigravida, third trimester; Z14.1 Cystic fibrosis carrier; Z3A.36 36 weeks gestation of pregnancy; Z36.85 Encounter for antenatal screening for Streptococcus B
CPT/HCPCS: 99213; G0463

== ENCOUNTER 2025-09-20 09:21 | Outpatient (AMB) | payer BC, SELFPAY ==
--- NOTE | 2025-09-20 09:36 | AMB.OBPNC ---
Vital Signs 09/20/25 09:37 Weight 114.816 kg Weight Measurement Method Standing Scale BP 151/89 H Blood Pressure Source Automatic Cuff Blood Pressure Location Left Upper Arm Position Sitting Respiration 18 Pulse 62 Pulse Source Monitor Temp 97.2 F Temp Source Oral Pulse Oximetry (%) 98 Oxygen Delivery Method Room Air Allergies/Home Meds Allergies & Medications Allergies No Known Allergies Allergy (Verified 09/20/25 09:38) Medication Reconciliation aspirin 81 mg tablet 81 mg PO BID 06/30/25 [History Confirmed 09/20/25] desvenlafaxine 100 mg tablet,extended release 24 hr 100 mg PO QDAY 06/30/25 [History Confirmed 09/20/25] vits no.126-ferrous fum 28 mg iron-folic acid 800 mcg tablet (Classic ) tab PO 06/30/25 [History Confirmed 09/20/25] Immunizations Immunizations Flu Vaccine in the Last 12 Months: No Flu Vaccine Exclusion Criteria: Refused by Patient and No Exclusion Criteria Care OB Visit Log OB Flowsheet Initial Weight: Not Recorded Date <del>?</del> EGA Weight BP Alb Glu CTX Pres Fundal ht FHR Mov Dilation Station Effacement Hx Notes Visit Note 03/23/25 <del>?</del> 12w 4d 109.089 kg 121/81 13 147 Good energy. No vaginal bleeding. No loss of fluids. Ultrasound today live IUP measuring 12 weeks 5 days crown-rump length is 6.29 cm 04/28/25 <del>?</del> 17w 5d 85.389 kg 125/80 18 154 active + Flutter, No VB or UCs No NIPT ordered. But desired 05/31/25 <del>?</del> 22w 3d 108.579 kg 118/79 22 147 active +FM No UCs or LOF NIPT 46 XX Had [place] Genetic test at [facility] and the risk of another CF baby is only 1% 06/30/25 <del>?</del> 26w 5d 109.996 kg 135/85 26 145 active +FM No UCs No VB 08/13/25 <del>?</del> 33w 0d 112.037 kg 142/88 absent unknown 33 145 active Patient states she has a lot of stress especially at work and at home with her low 1. And she denies PIH signs or symptoms. Denies leaking, bleeding, cramps. She does have some suprapubic pressure. Reports good movement First blood pressure was 167/76. Repeat 1 . Discussed labor precautions. Kick count twice a day. Patient is sent to labor and delivery for PIH workup and labor monitoring. Keep appointment with [facility] August 26 08/25/25 <del>?</del> 34w 5d 130/82 absent breech 34 146 active Reports good movement. Denies contractions. No complaints of headache, blurred vision, epigastric pain. Patient checks her blood pressures at home she reports that and they are all under 130/80. Patient is compliant with weekly NST BPP. Denies leaking or bleeding. [facility] appointment August 26 Continue weekly NST BPP. Kick count twice a day. Discussed breech exercises. Continue to monitor for signs and symptoms of preeclampsia. And continue to monitor blood pressure. To the hospital for blood pressures 140/90. Return in a week OB 09/08/25 <del>?</del> 36w 5d 113.398 kg 126/80 absent cephalic 36 145 active Denies PIH signs and symptoms. Reports good movement. Denies leaking, bleeding, contractions. Patient is compliant with weekly NST BPP . GBS today. Kick count twice a day. Discussed labor precautions. We did discuss ER precautions as well and parameters and return in a week OB check 09/20/25 <del>?</del> 38w 3d 114.816 kg 151/89 absent cephalic 38 145 active Reports good movement. Denies PIH signs symptoms. Patient states her blood pressures have been 130s 80s, 1 2680s at home. Denies leaking, bleeding, contractions IOL 09/27/25 for CHTN, patient to labor and delivery for PIH workup. Continue weekly NST BPP. Kick count twice a day. Discussed danger signs symptoms, PIH symptoms and ER precautions. 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 Her is a carrier for cystic fibrosis. Their daughter at home is 4 years old and has cystic fibrosis. Patient is aware of a 25% chance of another child with cystic fibrosis. She would like to be followed at [facility] but declines amniocentesis or termination of if the baby has cystic fibrosis. Notes Visit Date: 09/20/25 Last Updated by: Lindsey Borja CNM GBS- 09/20/25 Visit Date: 08/13/25 Last Updated by: Lindsey Borja CNM 08/12: 3rd tri lab wnl Visit Date: 06/30/25 Last Updated by: Apolonia Duarte (OB Clinic)MD Pt is doing well. Has follow up scheduled with [facility] GCT ordered Will authorize for NSTs/BPPs Visit Date: 05/31/25 Last Updated by: Apolonia Duarte (OB Clinic)MD Had level 2 ultrasound at [facility] and normal. EDC 09/30/2025. Had a test called the [employer] test which checks for genetic cystic fibrosis and the baby and it is negative. She states it would be less than 1% chance this baby has cystic fibrosis. [facility] recommended she double her dose of baby aspirin daily. They will follow-up for her cervical length and for growth. She will follow-up in 4 weeks. Visit Date: 04/28/25 Last Updated by: Apolonia Duarte (OB Clinic)MD PNC Labs on the chart: A+/Ab screen-/RNI/RPR NR/HepBSag-/HIV-/Hep C-/ GC-/Chlam-/SM-/CF carrier+ Has Level II US with [facility] Visit Date: 03/23/25 Last Updated by: Apolonia Duarte (OB Clinic)MD Patient will get NIPT and labs done at [facility] now. She would like a referral to [facility] for a maternal- medicine consult and level 2 ultrasound. Office Procedures OBC Clinic LOC & Office Proc's Nursing/Assessment Patient Status: Established Patient OB Clinic Nursing Assessment: Medication Reconciliation, Update PMH in EMR and Vital Signs OB Clinic Coordination of Care: Complex Care and Chronic Disease 1-5, Consent,records obtained, informed consent, Education Simp Pt/Fam, Lab and Imaging orders, Results/Orders obtained and Staff clarify orders Special Needs: Heart tones Established Patient Charge Established Patient Point Assignment: 135 Established Patient Point Charge: EP Level 4 (120-155) Assessment & Plan Diagnosis / Problem List (1) Encounter for supervision of high risk in third trimester, antepartum: Status: Acute Plan Patient to labor and delivery for PIH workup. Discussed kick count twice a day. Continue weekly NST BPP. Patient scheduled for induction September 26. Discussed PIH signs symptoms, ER precautions and labor precautions return in a week OB check Additional Plan Follow Up: 1 Week (obc)
[2025-09-20 09:37] VITALS: BP 151/89; PULSE 62; RESP 18; TEMP 36.2; O2SAT 98
== END 2025-09-20 09:55 | disposition home or self-care (01) ==
LOC: HODSOBC 09:21
PROVIDERS: Supervising Provider Advanced Practice Midwife; Visit Provider Advanced Practice Midwife
DX: O09.523 Supervision of elderly multigravida, third trimester (principal); O09.893 Supervision of other high risk pregnancies, third trimester; O10.913 Unspecified pre-existing hypertension complicating pregnancy, third trimester; Z3A.38 38 weeks gestation of pregnancy; Z14.1 Cystic fibrosis carrier; Z28.21 Immunization not carried out because of patient refusal
CPT/HCPCS: 99214; G0463

== ENCOUNTER 2025-09-20 10:11 | Observation (INO) | payer BC, SELFPAY ==
[2025-09-20] VITALS (18 sets, daily range): BP systolic 126–143; BP diastolic 75–87; PULSE 56–70; RESP 17–100; TEMP 36.9; O2SAT 92–100; BMI 39.8
[2025-09-20 10:53] LABS: Collection Type, Urine Clean Catch; RBC,Urine 0 /hpf (0-3); WBC,Urine 0 /hpf (0-5)
[2025-09-20 10:59] LABS: Basophils # (Auto) 0.0 Thou/mm3 (0.0-0.2); Basophils % (Auto) 1 % (0-2.5); Eosinophils # (Auto) 0.1 Thou/mm3 (0.0-0.5); Eosinophils % (Auto) 1 % (0-10); Hematocrit 34.6 % (36.0-46.0); Hemoglobin 11.7 g/dL (12.0-16.0); Immature Granulocytes Auto 0.03 Thou/mm3 (0.00-0.00); Lymphocytes # (Auto) 1.9 Thou/mm3 (1.0-4.8); Lymphocytes % (Auto) 25 % (10-50); Mean Corpuscular HGB Conc 33.8 g/dl (31.0-37.0); Mean Corpuscular Hemoglobin 29.4 pg (25.0-35.0); Mean Corpuscular Volume 87 fL (80-100); Monocytes # (Auto) 0.4 Thou/mm3 (0.0-0.8); Monocytes % (Auto) 6 % (0-12); Neutrophils # (Auto) 5.2 Thou/mm3 (1.8-7.7); Neutrophils % (Auto) 67 % (37-80); Nucleated Red Blood Cell # 0.00 Thou/mm3 (0.00-0.00); Nucleated Red Blood Cell % 0 /100 WBC (0); Platelet Count 301 Thou/mm3 (140-440); RDW Standard Deviation 41.0 fL (36.4-46.3); Red Blood Count 3.98 Miln/mm3 (4.00-5.20); White Blood Count 7.7 Thou/mm3 (3.6-11.0)
[2025-09-20 11:25] LABS: Alanine Aminotransferase 11 U/L (10-49); Albumin, Serum 3.8 gm/dL (3.5-5.0); Albumin/Globulin Ratio 1.4 (1.2-2.2); Alkaline Phosphatase 151 U/L (46-116); Anion Gap 11 (7-16); Aspartate Amino Transferase 19 U/L (0-34); BUN/Creatinine Ratio 8 Ratio (12-20); Bilirubin,Total 0.3 mg/dL (0.3-1.2); Blood Urea Nitrogen < 5 mg/dL (9-23); Calcium 8.7 mg/dL (8.3-10.6); Calcium (Corrected) 8.9 mg/dL (8.5-10.1); Carbon Dioxide 23.2 mMol/L (20.0-31.0); Chloride 103 mMol/L (98-107); Creatinine (Component) 0.6 mg/dL (0.6-1.3); Estimated Creatinine Clearance 170.1 mL/min (>60); Globulin 2.7 gm/dL (2.3-3.5); Glucose 84 mg/dL (74-106); LDH (Lactate Dehydrogenase) 188 U/L (120-246); Osmolality,Calculated 270 (275-295); Potassium 3.8 mMol/L (3.4-5.1); Sodium 137 mMol/L (136-145); Total Protein 6.5 gm/dL (5.7-8.2); Uric Acid 5.5 mg/dL (3.1-7.8); eGFR > 60 See Note
[2025-09-20 11:26] LABS: Creatinine,Random Urine 22 mg/dL (30-125); Protein Total, Random Urine < 6 mg/dL (1-14)
[2025-09-20 11:28] LABS: Fibrinogen 529 mg/dL (175-375); INR 0.9 (0.9-1.3); Partial Thromboplastin Time 28.4 Seconds (22.0-36.0); Prothrombin Time 9.7 Seconds (9.0-12.2)
[2025-09-20 11:31] LABS: Bacteria,Urine 1+; Bilirubin,Urine Negative (Negative); Blood,Urine Negative (Negative); Clarity,Urine Clear (Clear/Hazy); Color,Urine Colorless (Lt Yel-Yel); Glucose, Urine Negative (Negative); Ketones,Urine Negative (Negative); Leukocyte Esterase,Urine Negative (Negative); Nitrite,Urine Negative (Negative); PH,Urine 7.0 (5.0-7.0); Protein,Urine Negative (Neg - Trace); Specific Gravity,Urine 1.004 (1.001-1.035); Squamous Epithelial Cell,Urine < 1 /hpf (0-5); Urobilinogen,Urine Negative mg/dL (0.0-1.0)
--- NOTE | 2025-09-20 11:59 | XR_ITS ---
Study: Limited obstetric ultrasound. 1202 hours 20 September 2025. INDICATION: weight assessment. TECHNIQUE: Grayscale ultrasound with color flow Doppler. FINDINGS: There is a stringer intrauterine fetus in cephalic presentation with the spine to the maternal right side. heart rate of 143/min was noted. The amniotic fluid index measured 13.7 cm. The placenta is anterior. An estimated weight of 3212 g +/-475 g corresponds with 7 pounds 1 ounce. IMPRESSION: Live fetus of 37 weeks 2 days composite age with an estimated due date of 09 October 2025.
== END 2025-09-20 12:12 | disposition home or self-care (01) ==
PROVIDERS: Admitting Provider Obstetrics & Gynecology; Visit Provider Obstetrics & Gynecology
DX: Z34.83 Encounter for supervision of other normal pregnancy, third trimester (principal); Z3A.38 38 weeks gestation of pregnancy
CPT/HCPCS: 36415; 59025; 59899; 76815; 80053; 81001; 82570; 83615; 84156; 84550; 85025; 85384; 85610; 85730